=== PATIENT | female | born 1985 | race Caucasian/White ===

== ENCOUNTER 2019-02-17 06:00 | Day surgery (SDC) | payer OTHER, SELFPAY ==
[2019-02-17 06:25] VITALS: BP 111/82; PULSE 83; RESP 16; TEMP 37.6; O2SAT 100; BMI 21.1
--- NOTE | 2019-02-17 07:23 | PCM.HP.BLA ---
History and Physical Date of Admission: 02/17/19 33-year-old 3 para 2 at approximately 16 1/2 weeks gestation with 13-week size embryo without cardiac activity. She denies any vaginal bleeding. She presented to the office 2 days ago for a routine exam and was found to have a fetus without cardiac activity. Her has been uncomplicated to date. She has 2 previous births without complications. Past surgical history: None Allergies: Nonone ROS_ General: No fevers or chills Cardiac: No chest pain or palpitations Respiratory no cough or shortness of breath Heme: No history of VTE, prolonged bleeding or easy bruising Physical exam: Neuro: Awake and alert no acute distress Lungs clear to auscultation bilaterally Heart S1-S2 regular rate and rhythm Assessment plan: 33-year-old female with 13-week size missed at 16+ weeks gestation by last menstrual period and first trimester ultrasound. Risk benefits and alternatives to various options been discussed with the patient and her partner, questions were answered to their satisfaction she desires to proceed with suction D&C.
[2019-02-17] MEDS: Doxycycline 100 MG CAPSULE PO (07:24)
--- NOTE | 2019-02-17 07:26 | HP.PCM_ITS ---
History and Physical Date of Admission: 02/17/19 33-year-old 3 para 2 at approximately 16 1/2 weeks gestation with 13- week size embryo without cardiac activity. She denies any vaginal bleeding. She presented to the office 2 days ago for a routine exam and was found to have a fetus without cardiac activity. Her has been uncomplicated to date. She has 2 previous births without complications. Past surgical history: None Allergies: Nonone ROS_ General: No fevers or chills Cardiac: No chest pain or palpitations Respiratory no cough or shortness of breath Heme: No history of VTE, prolonged bleeding or easy bruising Physical exam: Neuro: Awake and alert no acute distress Lungs clear to auscultation bilaterally Heart S1-S2 regular rate and rhythm Assessment plan: 33-year-old female with 13-week size missed at 16+ weeks gestation by last menstrual period and first trimester ultrasound. Risk benefits and alternatives to various options been discussed with the patient and her partner, questions were answered to their satisfaction she desires to proceed with suction D&C.
--- NOTE | 2019-02-17 07:30 | POC_PTH ---
PATIENT: SU PORRAS LOC: [facility] [place] U#:[id number] AGE/SX: 33/F ROOM: RE02/17/[address]: Dr. Melanie Greene MD : [id number] BED: DIS: 02/17/2019 SPEC #: [id number] RECD: 02/17/19 10:28 STATUS: MACIE RENEE #: [id number] ADOWA: 02/17/19 07:[address]: Melanie Greene DEPT: SURGICAL PATHOLOGY RECD BY: Tonio Moran ENTERED: 02/17/19 13:32 SP TYPE: PROD CONC OTHR DR: No Primary Care Phys Tissues: Product of conception, NOS Procedures: Surgery Specimen Level IV HEADER OPERATION: Dilation and curettage, suction PRE-OP DIAGNOSIS: Missed TISSUE SUBMITTED: Products of conception MICROSCOPIC DIAGNOSIS Products of conception: Immature, edematous chorionic villi with trophoblastic riming, decidual tissue with implantation site, degenerative endometrial tissue and embryonic tissue present. See comment. 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 This case was reviewed and diagnosis discussed with Dr. Greene on 02/22/19. Case has been reviewed in consultation with Dr. Gore and Dr. Laura who concurs with the above diagnosis. SEAN:JOSELINE ESTRADA:PARMJIT MICROSCOPIC DESCRIPTION Slides are reviewed. GROSS DESCRIPTION Received in fixative is one container labeled with the patient's name and designated products of conception. The specimen consists of multiple irregular fragments of pink soft tissue consistent with fragments of placental tissue that in aggregate measure 9 x 9 x 3 cm. tissue is also noted consisting of chest, abdomen, extremity and face. Supervisor Plate Forming tissue is submitted in three cassettes as follows: 1-2 - placental tissue, 3 - tissue. / JOSELINE:josesito 02/17/19 TC:5 CPT: 41917
--- NOTE | 2019-02-17 08:10 | DCINST_ITS ---
Discharge Diet: No Restrictions Discharge Activity: Return to Normal Activity, May Shower, May Take a Tub Bath - in 1 week. May resume sexual activity in: 1 week Call your doctor if your incision/area has: Continuous Slow Oozing, Increased Pain/ Swelling Call your doctor if you observe: Fever of 101 or Higher, Using more than one pad per hour - for 2 hrs in a row Allergies/Adverse Reactions: Allergies latex Allergy (Verified 02/17/19 06:23) Rash Medications to take at Discharge NK 02/16/19 Primary Care Physician: Care Physician,No Primary [Primary Care Provider] - Test Results: Test results from this visit will be discussed in further detail at your follow- up appointment, if applicable. Please Follow Up With: Melanie Greene MD - [phone] When: 1-2 weeks or as needed
--- NOTE | 2019-02-17 08:10 | PCM.OPRPT ---
Report of Operation Date of Procedure: 02/17/19 Pre-Operative Diagnosis: missed ,16 weeks gestation Post-Operative Diagnosis: same Surgery/Procedure Performed:: suction D&C Description of Surgical Findings:: normal cervix and vagina technical supervisor: florina Cope Type of Anesthesia:: MAC/Supplemental/Local Anesthesiologist: Popeye Wood Special Medications: none Specimen's removed: POCs Drains: none Estimated Blood Loss (mL): 50 Fluids Replaced: 600 cc LR Description of Procedure: The patient was taken to the operating room where she was prepped and draped in a dorsolithotomy position. A bimanual examination was done and confirmed the uterus to be 13 weeks size and anteverted. A weighted speculum was placed in the vagina and the anterior lip of the cervix was grasped with a single-tooth tenaculum. The cervix was dilated serially. A 14 mm suction curette was placed to the uterine fundus and the suction was created. Several passes were made to remove clots and products of conception. When minimal tissue was returning a gentle sharp curettage was then done of the uterine cavity. The uterine cry was appreciated and another gentle pass was made with the suction curette. At this point there is no active bleeding from the uterus and minimal blood and no further products of conception were removed. Transabdominal ultrasound was performed which revealed that the uterus was empty of products and a bright white endometrial stripe was noted. The instruments removed from the cervix and the cervix was observed and no active bleeding was identified. The tenaculum was removed off the cervix and hemostasis of the tenaculum site was assured. Made of the instruments removed from the vagina and the vaginal sweep was completed by me. Sponge and needle counts were correct. The patient was taken to the recovery room in stable condition. Findings: 13 week size uterus, normal cervix and vagina. Specimen: Products of conception Grafts/Implants Used: none - Complications none - Admit VTE Documentation VTE Present on Admission: No VTE Mechan Device Prophylaxis: SCD's VTE Pharm Prophylaxis ordered?: No Reason prophylaxis not ordered:: Procedure Not Indicated
[2019-02-17 08:17] VITALS: BP 102/70; BP 111/82; PULSE 97; RESP 16; TEMP 36.8; O2SAT 99
[2019-02-17 08:20] VITALS: BP 111/82; BP 96/56; PULSE 86; RESP 16; O2SAT 98
[2019-02-17 08:25] VITALS: BP 111/82; BP 99/72; PULSE 71; RESP 16; O2SAT 100
[2019-02-17 08:30] VITALS: BP 102/68; BP 111/82; PULSE 83; RESP 16; TEMP 36.6; O2SAT 100
[2019-02-17 09:00] VITALS: BP 111/82
== END 2019-02-17 09:07 | disposition home or self-care (01) ==
LOC: SDC 06:04 → AC 06:06
PROVIDERS: Referring Provider Obstetrics & Gynecology; Visit Provider Obstetrics & Gynecology
PROC: (CPT 59821; principal; 2019-02-17 07:15)
DX: O02.1 Missed abortion (principal); F17.200 Nicotine dependence, unspecified, uncomplicated
CPT/HCPCS: 59821; 36415; 86850; 86900; 88305; J7120

== ENCOUNTER → 2019-07-10 | Outpatient (CLI) | payer OTHER, SELFPAY ==
[2019-07-10 12:27] VITALS: BMI 22.3
[2019-07-10 13:48] LABS: Absolute Lymphocyte Count 2.13 X10^3/uL (0.83-4.51); Absolute Neutrophil Count 4.8 X10^3/uL (2.0-7.7); Basophil# 0.09 X10^3/uL; Basophil% 1.2 % (0-1); Differential Indicated SCAN CRITERIA MET; Eosinophil# 0.15 X10^3/uL; Eosinophils% 1.9 % (0-5); Hemoglobin 16.2 g/dL (12.0-15.0); Lymphocyte # 2.13 X10^3/ul (4.0); Lymphocyte % 27.4 % (19-41); Mean Corp Hgb Conc 32.4 g/dL (32-36); Mean Corpuscular Hgb 27.2 pg (27.0-32.0); Monocyte# 0.55 X10^3/uL; Monocyte% 7.1 % (0-10); NRBC Flagged by Analyzer 0 % (0-5); Neutrophil # 4.84 X10^3/uL (2.7-7.7); Neutrophil % 62.1 % (47-70); POSITIVE MORPHOLOGY YES; Platelet Count 155 K/mm3 (150-450); RBC Distribution Width CV 14.6 % (11.6-14.6); RBC Distribution Width SD 43.5 fl (35.1-43.9); Red Blood Count 5.95 M/mm3 (4.2-5.4); White Blood Count 7.8 K/mm3 (4.4-11.0)
[2019-07-10 13:58] LABS: hCG Titer Quant., Serum < 1 mIU/mL (1-3)
[2019-07-10 14:03] LABS: Thyroid Stim Hormone (TSH) 2.05 uIU/mL (0.358-3.74)
== END | disposition home or self-care (01) ==
LOC: LAB 12:35
PROVIDERS: Referring Provider Obstetrics & Gynecology; Visit Provider Obstetrics & Gynecology
DX: N93.9 Abnormal uterine and vaginal bleeding, unspecified (principal)
CPT/HCPCS: 36415; 84443; 84702; 85025

== ENCOUNTER → 2019-07-19 11:57 | Outpatient (CLI) | payer OTHER, SELFPAY ==
[2019-07-10 12:54] VITALS: BMI 22.3
--- NOTE | 2019-07-19 12:00 | US_ITS ---
STUDY: ULTRASOUND TRANSVAGINAL CLINICAL: Female, 34 years old. Pain TECHNIQUE: Transvaginal COMPARISON: Pelvic ultrasound July 19, 2019 FINDINGS: Normal uterine size measuring 8.2 x 5 x 4.1 cm in maximal craniocaudal dimension. There are no myometrial masses. Normal endometrial thickness measuring 8 mm. There are no endometrial masses, and there is no fluid in the endometrial cavity. Normal uterine cervix. Normal right ovary, measuring 2.7 x 2 x 1.1 cm. There are multiple follicles without a dominant cyst. Normal left ovary, measuring 3.1 x 1.8 x 2.2 cm. There are multiple follicles without a dominant cyst. There is no free fluid in the pelvis. US/Transvaginal Non- IMPRESSION: No acute pathology identified in the pelvis Electronically Signed: Jose Flower, at 19:19 EDT Tel , Service support ,
--- NOTE | 2019-07-19 12:00 | US_ITS ---
STUDY: ULTRASOUND TRANSVAGINAL CLINICAL: Female, 34 years old. Pain TECHNIQUE: Transvaginal COMPARISON: Pelvic ultrasound July 19, 2019 FINDINGS: Normal uterine size measuring 8.2 x 5 x 4.1 cm in maximal craniocaudal dimension. There are no myometrial masses. Normal endometrial thickness measuring 8 mm. There are no endometrial masses, and there is no fluid in the endometrial cavity. Normal uterine cervix. Normal right ovary, measuring 2.7 x 2 x 1.1 cm. There are multiple follicles without a dominant cyst. Normal left ovary, measuring 3.1 x 1.8 x 2.2 cm. There are multiple follicles without a dominant cyst. There is no free fluid in the pelvis. US/Pelvic (Non ) IMPRESSION: No acute pathology identified in the pelvis Electronically Signed: Jose Flower, at 19:19 EDT Tel , Service support ,
== END ==
PROVIDERS: Referring Provider Obstetrics & Gynecology; Visit Provider Obstetrics & Gynecology
DX: O03.9 Complete or unspecified spontaneous abortion without complication (principal); N39.3 Stress incontinence (female) (male)
CPT/HCPCS: 36415; 76830; 76856; 93976

== ENCOUNTER → 2019-08-07 | Outpatient (CLI) | payer OTHER, SELFPAY ==
[2019-08-07 11:04] VITALS: BMI 22.3
[2019-08-07 13:36] LABS: hCG Titer Quant., Serum < 1 mIU/mL (1-3)
== END | disposition home or self-care (01) ==
LOC: LAB 12:02
PROVIDERS: Referring Provider Obstetrics & Gynecology; Visit Provider Obstetrics & Gynecology
DX: N93.9 Abnormal uterine and vaginal bleeding, unspecified (principal)
CPT/HCPCS: 36415; 84702

== ENCOUNTER → 2020-08-26 14:00 | Outpatient (CLI) | payer OTHER, SELFPAY ==
[2020-08-26 13:57] VITALS: BMI 24.2
[2020-09-02 04:38] LABS: HPV APTIMA, High Risk Negative (Negative)
== END ==
PROVIDERS: Referring Provider Nurse Practitioner Women's Health; Visit Provider Nurse Practitioner Women's Health
DX: Z12.4 Encounter for screening for malignant neoplasm of cervix (principal)
CPT/HCPCS: 87624; 88175; G0145

== ENCOUNTER → 2021-02-26 10:09 | Outpatient (CLI) | payer OTHER, SELFPAY ==
[2021-02-26 09:56] VITALS: BMI 22.3
[2021-02-26 10:50] LABS: Absolute Lymphocyte Count 2.07 X10^3/uL (0.83-4.51); Absolute Neutrophil Count 4.8 X10^3/uL (2.0-7.7); Basophil# 0.08 X10^3/uL; Eosinophil# 0.14 X10^3/uL; Eosinophils% 1.8 % (0-5); Hemoglobin 16.4 g/dL (12.0-15.0); Lymphocyte # 2.07 X10^3/ul (0.83-4.51); Lymphocyte % 26.8 % (19-41); Mean Corp Hgb Conc 30.9 g/dL (32-36); Mean Corpuscular Hgb 26.6 pg (27.0-32.0); Monocyte% 7.8 % (0-10); NRBC Flagged by Analyzer 0 % (0-5); Neutrophil % 62.2 % (47-70); Platelet Count 189 K/mm3 (150-450); RBC Distribution Width SD 44.3 fl (35.1-43.9); Red Blood Count 6.16 M/mm3 (4.2-5.4); White Blood Count 7.7 K/mm3 (4.4-11.0)
[2021-02-26 11:30] LABS: Thyroid Stim Hormone (TSH) 1.57 uIU/mL (0.358-3.74)
== END ==
PROVIDERS: Referring Provider Nurse Practitioner Women's Health; Visit Provider Nurse Practitioner Women's Health
DX: N93.9 Abnormal uterine and vaginal bleeding, unspecified (principal); Z13.29 Encounter for screening for other suspected endocrine disorder
CPT/HCPCS: 36415; 84443; 85025